=== PATIENT | male | born 1980 | race Caucasian/White ===

== ENCOUNTER 2017-10-08 18:38 | Emergency (ER) | payer MEDICAID ==
[~2017-10-08] VITALS: Ht 180.3 cm; Wt 106.5 kg
[2017-10-08 18:49] VITALS: BP 143/96
== END 2017-10-08 20:02 | disposition home or self-care (01) ==
LOC: ED 19:10
DX: K08.89 Other specified disorders of teeth and supporting structures (principal)
CPT/HCPCS: 99283